=== PATIENT | female | born 1995 | race Hispanic/Latino ===

== ENCOUNTER 2020-01-17 09:17 | Inpatient (IN) | payer OTHER ==
[2020-01-17 09:47] VITALS: BMI 30.7
[2020-01-17 10:32] LABS: Amnisure Test RUPTURE DETECTED (No Rupture)
[2020-01-17 10:33] LABS: Amnisure Internal Control QC ACCEPTABLE (ACCEPTABLE)
[2020-01-17] MEDS ORDERED: hydrALAZINE 20 MG/ML VIAL SLOW IVP PRN ×2 (11:33→19:28)
[2020-01-17] MEDS ORDERED: Butorphanol Tartrate 1 MG/ML VIAL SLOW IVP PRN (11:33)
[2020-01-17] MEDS ORDERED: Lidocaine 1% (PF) 30 ML VIAL SC PRN (11:33)
[2020-01-17] MEDS ORDERED: NS / Oxytocin 40 units/1000ml 1,000 ML IV PRN (11:33)
[2020-01-17] MEDS ORDERED: Ondansetron PF 4 MG/2 ML Vial IVP PRN ×2 (11:33→19:28)
[2020-01-17] MEDS ORDERED: Acetaminophen 500 MG TAB PO PRN (11:33)
[2020-01-17] MEDS ORDERED: Promethazine HCl 25 MG/ML VIAL IM PRN ×2 (11:33→19:28)
--- NOTE | 2020-01-17 11:38 | PDOC.LDHP ---
Labor and Delivery H&P Chief complaint: loss of fluid HPI: Patient is a 24 yo @ 39.1 weeks presenting that she had "gush of fluid" at 0600 with persistent leakage of fluid. She also reports a minimal amount of vaginal bleeding just after gush of fluids. complicated by controlled autoimmune thyroiditis, placenta previa resolved per MFM on 12/20. She reports good FM. Denies ELLIOTT, vision changes, cough, rhinorrhea. Current gestational age (weeks): 39 (39.1) Due date: 01/23/20 Dating criteria: last menstrual period, first trimester ultrasound Grav: 3 Para: 2 OB History Details: , 1 VAVD 2009, hx of chorio, 2 vaginal deliveries Current complications: other (Thyroiditis) Abnormal US findings: Yes (Placenta previa, resolved) Past Medical History: autoimmune thyroiditis, controlled, TSH 3.4 08/2019 Current medications: other (Synthroid) Previous surgical history: none Allergies/Adverse Reactions: Allergies Allergy/AdvReac Type Severity Reaction Status Date / Time No Known Allergies Allergy Verified 01/17/20 09:48 Social history: none - Physical Exam Vital signs reviewed and normal: yes General: NAD, resting Heart: RRR Lungs: nonlabored breathing Abdomen: NTTP Extremeties: no edema FHT: category 2, absent or minimal variables [place] contractions every: 4-5 mins - Vaginal Exam cm dilated: 4 Effacement: 50% Station: -2 - OB Labs Blood type: B RH: positive Antibody Screen: negative HIV: negative RPR: negative HEPSAg: negative 1 hour GCT: negative GBS: negative Rubella: immune - Assessment L&D Assessment: term rupture in membranes - Plan Plan: admit to L&D, labor augmentation if indicated -: 24 yo @ 39.1 weeks presenting for SROM sIUP, SROM - Amnisure positive - Continuous monitoring - serial SVE, /-2 @ 1030 - consider pitocin augmentation if no progress is made at next check 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 Flores
[2020-01-17] MEDS ORDERED: NS w/ Oxytocin 10 units 500 ML IV SCH (11:45)
[2020-01-17] MEDS: Lactated Ringer's 1,000 ML IV SCH ×2 (12:06→14:07)
[2020-01-17 13:02] LABS: Hemoglobin 13.5 g/dL (12.0-16.0); Mean Corpuscular HGB CONC 34.3 g/dL (32.0-36.0); Mean Corpuscular Hemoglobin 32.1 pg (27.0-31.0); Mean Corpuscular Volume 93.7 fL (78.0-98.0); Mean Platelet Volume 10.3 fL (7.4-10.4); Platelet Count 160 thou/uL (130-400); RBC Distribution Width 12.6 % (11.5-14.5); Red Blood Cell (RBC) Count 4.19 mill/uL (4.20-5.40); White Blood Cell (WBC) Count 7.7 thou/uL (4.8-10.8)
[2020-01-17 13:39] LABS: HBSAg Index 0.18 S/CO (0-0.99); Hep B Surf Ag Non-Reactive S/CO (NonReactive); Syphilis Antibody Nonreactive (Nonreactive); Syphilis Antibody Index 0.02 S/CO (<1.00 Non-Reactive)
--- NOTE | 2020-01-17 14:54 | PDOC.LDPN ---
Labor & Delivery Progress Note - Subjective Subjective: painful contractions - Objective Vital signs reviewed and normal: yes General: breathing through contractions Uterine fundus: non tender SVE: /-2 FHT: category 1 [place] contractions every: 4 mins Other exam findings: FHT showing episodes of 10-20 mins of min variability ret urning to moderate AROM: bloody fluid (blood on zeina pad under patient with 2 clots) Plan: continue plan of care -: 24 yo @ 39.1 weeks presented for SROM sIUP, SROM - Continuous monitoring - serial SVE, /-2 @ 1030, /-2 @1430 - consider pitocin augmentation if no progress is made at next check 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
[2020-01-17] MEDS ORDERED: NS / Oxytocin 40 units/1000ml 1,000 ML ONE ×3 (15:54→17:20)
[2020-01-17] MEDS ORDERED: Lidocaine 1% (PF) 30 ML VIAL ONE ×2 (15:54→16:08)
--- NOTE | 2020-01-17 16:25 | PDOC.LDPN ---
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
--- NOTE | 2020-01-17 17:03 | PDOC.OPDEL ---
OB Operative/Delivery Note - Additional Findings/Plan Compilations/Other Findings: Vaginal Delivery note Delivering Physician: Marcela Sykes Attending: Mark Procedure: Spontaneous Vaginal Delivery Anesthesia: None, local for repair QBL: pending. Pre-op Diagnosis: 1. Term intrauterine in labor 2. Hx of autoimmune thyroiditis Post-op Diagnosis: 1. Term intrauterine , delivered 2. same as above Indications: A 24y/o female presented for contractions and suspected ROM. Delivery Note: This is 24y/o female @ 39.1wks who delivered a viable F at 16:40 on 01/17/2020. Following an uneventful antepartum course, a vigorous F was delivered over an intact perineum in the occipitoanterior position. Anterior Shoulder and then remainder of the body delivered. Nuchal and body cord x 1. The head was held down and mouth and nares were bulb suctioned. Cord clamped and cut and cord blood collected. Placenta delivered intact with a 3 vessel cord noted. Fundal massage was performed and the fundus was firm. The cervix and vagina were inspected and a small 2nd degree perineal laceration was noted and repaired with 3-0 vicryl in the usual fashion with good approximation and hemostasis after a local anesthetic Lidocaine was injected at site. went to nursery in good condition for routine care. Apgars were 7/9 at 1 & 5 minutes, respectively. Patient tolerated delivery well and went to after routine recovery/care.
[2020-01-17] MEDS ORDERED: Misoprostol 200 MCG TAB ONE (17:20)
[2020-01-17] MEDS ORDERED: Carboprost 250 MCG/ML AMP ONE (17:20)
[2020-01-17] MEDS ORDERED: Tranexamic Acid 1,000 MG/10 ML VIAL ONE (17:21)
[2020-01-17] MEDS ORDERED: Misoprostol 200 MCG TAB PR SCH (17:45)
[2020-01-17] MEDS ORDERED: Preparation H Ointment 28 GM TUBE PR PRN (19:28)
[2020-01-17] MEDS ORDERED: Milk Of Magnesia 30 ML UDCUP PO PRN (19:28)
[2020-01-17] MEDS ORDERED: Adacel (T-DAP) 0.5 ML SYRINGE IM ONE (19:28)
[2020-01-17] MEDS ORDERED: Lanolin Ointment 7 GM TUBE TOP PRN (19:28)
[2020-01-17] MEDS ORDERED: Benzocaine-Menthol 82.5 ML CAN TOP PRN (19:28)
[2020-01-17] MEDS ORDERED: diphenhydrAMINE 25 MG CAP PO PRN (19:28)
[2020-01-17] MEDS ORDERED: Bisacodyl 10 MG SUPP PR PRN (19:28)
[2020-01-17] MEDS ORDERED: NS / Oxytocin 40 units/1000ml 1,000 ML IV SCH (19:28)
[2020-01-17] MEDS: Ibuprofen 800 MG TAB PO SCH (19:47)
[2020-01-17] MEDS: Docusate Calcium (SURFAK) 240 MG CAP PO SCH (23:09)
[2020-01-18 05:33] LABS: Hemoglobin 10.9 g/dL (12.0-16.0); Mean Corpuscular Hemoglobin 32.8 pg (27.0-31.0); Mean Corpuscular Volume 93.7 fL (78.0-98.0); Mean Platelet Volume 9.1 fL (7.4-10.4); Platelet Count 159 thou/uL (130-400); RBC Distribution Width 12.6 % (11.5-14.5); Red Blood Cell (RBC) Count 3.33 mill/uL (4.20-5.40); White Blood Cell (WBC) Count 10.1 thou/uL (4.8-10.8)
[2020-01-18] MEDS: Ibuprofen 800 MG TAB PO SCH ×3 (05:58→21:06)
[2020-01-18] MEDS: Levothyroxine Sodium 50 MCG TAB PO SCH (06:26)
--- NOTE | 2020-01-18 07:12 | PDOC.PP ---
Post Progress Note Post Day #: 1 Subjective: Patient reports she is doing well. She reports perineal pain that is now controlled. She is taking ibuprofen. She has not tried dermoplast or ice packs yet. Lochia like a normal period, denies passing any more clots overnight. Ambulating, denies lightheadedness. Tolerating PO, passing flatus, voiding well. Vital Signs (12 hours) Temp Pulse Resp BP Pulse Ox 01/18/20 04:15 98.1 F 71 18 101/65 01/18/20 00:24 99.0 F 67 20 100/57 L 98 01/17/20 22:30 98.7 F 72 18 110/60 01/17/20 21:03 98.7 F 75 18 106/58 L 99 Weight Weight 71.214 kg - Physical Examination General: NAD Cardiovascular: no m/r/g, RRR Respiratory: clear to auscultation bilaterally, non-labored breathing Abdominal: + bowel sounds, no distention, appropriately TTP Neurological: no gross focal deficits Psychiatric: A&Ox3, normal affect Result Diagrams: 01/18/20 05:19 Additional Labs: Post Labs Hep Bs Antigen Non-Reactive S/CO (NonReactive) 01/17/20 12:14 Blood Type B POSITIVE 01/17/20 12:14 (1) , delivered Code(s): O80 - ENCOUNTER FOR FULL-TERM UNCOMPLICATED DELIVERY Status: Acute (2) Autoimmune thyroiditis Code(s): E06.3 - AUTOIMMUNE THYROIDITIS Status: Acute - Assessment/Plan PPD#1 -Voiding, passing flatus, ambulating, tolerating PO -Pain mostly well controlled, discussed adding ice packs and dermoplast. Continue ibuprofen/tylenol -Lochia the same as a normal period #Anemia -Hgb decreased -start PO iron -Bowel regimen #Covid swab pending -admission swab #Autoimmune thyroiditis -Checking TSH Dispo: plan to DC home tomorrow, pending baby's 36 hr bili
[2020-01-18] MEDS ORDERED: Acetaminophen 325 MG TAB PO PRN (07:57)
[2020-01-18] MEDS: Ferrous Sulfate 325 MG TAB PO SCH ×2 (08:01→18:38)
[2020-01-18] MEDS: Prenatal Vitamin 1 TAB PO SCH (09:18)
[2020-01-18] MEDS: Docusate Calcium (SURFAK) 240 MG CAP PO SCH ×2 (09:18→21:11)
[2020-01-18 12:03] LABS: SARS-CoV-2 MS2 Positive; SARS-CoV-2 N Gene Negative; SARS-CoV-2 S Gene Negative; SARS-CoV-2 by NAA Not Detected (NotDetected); SARS-CoV-2 orf1ab Negative
[2020-01-19] MEDS: Ibuprofen 800 MG TAB PO SCH (05:04)
[2020-01-19] MEDS: Levothyroxine Sodium 50 MCG TAB PO SCH (05:05)
--- NOTE | 2020-01-19 06:24 | PDOC.PP ---
Post Progress Note Post Day #: 2 Subjective: No concerns, lochia the same as a normal period, pain controlled PO intake tolerated: yes Flatus: yes Ambulation: yes Vital Signs (12 hours) Temp Pulse Resp BP Pulse Ox 01/18/20 19:20 98.1 F 85 18 116/76 100 Weight Weight 71.214 kg - Physical Examination General: NAD Cardiovascular: no m/r/g, RRR Respiratory: clear to auscultation bilaterally, non-labored breathing Abdominal: + bowel sounds, lochia (minimal), no distention, appropriately TTP Extremities: negative homans (B) Neurological: no gross focal deficits Psychiatric: A&Ox3, normal affect Result Diagrams: 01/18/20 05:19 Additional Labs: Post Labs Hep Bs Antigen Non-Reactive S/CO (NonReactive) 01/17/20 12:14 Blood Type B POSITIVE 01/17/20 12:14 (1) , delivered Code(s): O80 - ENCOUNTER FOR FULL-TERM UNCOMPLICATED DELIVERY Status: Acute (2) Autoimmune thyroiditis Code(s): E06.3 - AUTOIMMUNE THYROIDITIS Status: Acute - Assessment/Plan PPD#2 -Voiding, passing flatus, ambulating, tolerating PO -Pain controlled -Lochia minimal #Anemia -DC with PO Fe -Bowel regimen #Autoimmune thyroiditis -TSH 2.2, continue levothyroxine, follow up outpatient Dispo: DC to home today, follow up at [facility] in 2 weeks
[2020-01-19] MEDS: Ferrous Sulfate 325 MG TAB PO SCH (07:25)
[2020-01-19 08:32] VITALS: BP 108/70; TEMP 97.8
[2020-01-19] MEDS: Prenatal Vitamin 1 TAB PO SCH (09:31)
[2020-01-19] MEDS: Docusate Calcium (SURFAK) 240 MG CAP PO SCH (09:32)
== END 2020-01-19 10:30 | disposition home or self-care (01) | DRG 807 ==
LOC: L&D/OP 09:17 → L&D 16:40 → 3SW 21:16
PROVIDERS: ADMIT Student in an Organized Health Care Education/Training Program; ATTEND Obstetrics & Gynecology
PROC: 10E0XZZ Delivery of Products of Conception, External Approach (ICD-10-PCS; principal; 2020-01-17)
PROC: 0KQM0ZZ Repair Perineum Muscle, Open Approach (ICD-10-PCS; 2020-01-17)
DX: O69.81X0 Labor and delivery complicated by cord around neck, without compression, not applicable or unspecified (principal); Z37.0 Single live birth; O99.284 Endocrine, nutritional and metabolic diseases complicating childbirth; E06.3 Autoimmune thyroiditis; O70.1 Second degree perineal laceration during delivery; O99.02 Anemia complicating childbirth; D64.9 Anemia, unspecified; Z3A.39 39 weeks gestation of pregnancy; Z20.828 Contact with and (suspected) exposure to other viral communicable diseases
CPT/HCPCS: 36415; 84112; 84443; 85027; 86780; 86850; 86900; 86901; 87340; 87635; 88307; 99285; J2001; J3490; U0003